=== PATIENT | female | born 1990 | race Two or more races ===

== ENCOUNTER 2017-04-14 23:45 | Outpatient (CLI) | payer OTHER ==
[2017-04-15 00:36] VITALS: BP 133/78
== END 2017-04-15 01:01 | disposition home or self-care (01) ==
LOC: LDRP-OP 23:45 → 2WEST 23:46
DX: O47.1 False labor at or after 37 completed weeks of gestation (principal); Z3A.41 41 weeks gestation of pregnancy
CPT/HCPCS: 59025; G0378